=== PATIENT | female | born 1955 | race African-American/Black ===

== ENCOUNTER → 2017-10-09 | Outpatient (CLI) | payer BC | END | disposition home or self-care (01) | LOC: MAMMO 08:02 | DX: Z12.31 Encounter for screening mammogram for malignant neoplasm of breast (principal); R92.1 Mammographic calcification found on diagnostic imaging of breast | CPT/HCPCS: 77067 ==

== ENCOUNTER → 2018-12-12 | Outpatient (CLI) | payer BC ==
[2018-12-12 08:27] LABS: CHLORIDE 107 mEq/L (98-107)
[2018-12-12 08:36] LABS: LDL CHOLESTEROL 145 mg/dL (5-100)
[2018-12-12 08:37] LABS: HDL CHOLESTEROL 46 mg/dL (40-59); T4 FREE 0.93 ng/dL (0.76-1.46)
[2018-12-13 09:11] LABS: ESTRADIOL < 6.0 pg/mL (.); VITAMIN D 25-OH 44.6 ng/mL (30.0-100.0)
[2018-12-16 04:14] LABS: ESTROGENS TOTAL 89 pg/mL (.)
== END | disposition home or self-care (01) ==
LOC: MAMMO 07:48
DX: Z12.31 Encounter for screening mammogram for malignant neoplasm of breast (principal); E11.42 Type 2 diabetes mellitus with diabetic polyneuropathy; E11.43 Type 2 diabetes mellitus with diabetic autonomic (poly)neuropathy; E11.65 Type 2 diabetes mellitus with hyperglycemia; E11.69 Type 2 diabetes mellitus with other specified complication; E78.1 Pure hyperglyceridemia; M51.06 Intervertebral disc disorders with myelopathy, lumbar region
CPT/HCPCS: 36415; 77067; 80061; 82306; 82670; 82672; 83036; 84439; 84443; 84481

== ENCOUNTER → 2020-02-24 | Outpatient (CLI) | payer BC ==
[2020-02-24 08:26] LABS: BASOPHILS % 0.8 % (0.0-2.0); EOSINOPHILS % 3.3 % (0.0-5.0); HEMATOCRIT. 40.2 % (36.0-48.0); HEMOGLOBIN. 13.4 g/dL (12.0-16.0); LYMPHOCYTES % 28.9 % (20.0-50.0); MEAN CORPUSCULAR HEMOGLOBIN 28.5 pg (28.0-32.0); MEAN CORPUSCULAR VOLUME 85.5 fL (81.0-99.0); MEAN PLATELET VOLUME 8.8 fl (7.4-10.4); MONOCYTES % 5.6 % (2.0-8.0); NEUTROPHILS % 61.4 % (40.0-76.0); PLATELET 294 x1000/uL (130-400); RED CELL DISTRIBUTION WIDTH 14.5 % (11.6-14.6)
[2020-02-24 09:25] LABS: CHLORIDE 107 mEq/L (98-107)
[2020-02-24 09:33] LABS: LDL CHOLESTEROL 147 mg/dL (5-100)
[2020-02-24 09:35] LABS: HDL CHOLESTEROL 44 mg/dL (40-59)
== END | disposition home or self-care (01) ==
LOC: LAB 07:42
DX: E66.9 Obesity, unspecified (principal); E11.43 Type 2 diabetes mellitus with diabetic autonomic (poly)neuropathy; E11.69 Type 2 diabetes mellitus with other specified complication; E11.65 Type 2 diabetes mellitus with hyperglycemia; Z20.828 Contact with and (suspected) exposure to other viral communicable diseases
CPT/HCPCS: 36415; 80053; 80061; 82306; 84443; 85025; C9803; U0003

== ENCOUNTER → 2020-02-26 | Outpatient (CLI) | payer BC | END | disposition home or self-care (01) | LOC: MAMMO 07:48 | DX: Z12.31 Encounter for screening mammogram for malignant neoplasm of breast (principal) | CPT/HCPCS: 77067 ==

== ENCOUNTER → 2021-06-15 | Outpatient (CLI) | payer BC ==
[2021-06-15 10:02] LABS: CHLORIDE 106 mEq/L (98-107)
[2021-06-15 10:09] LABS: LDL CHOLESTEROL 122 mg/dL (5-100)
[2021-06-15 10:11] LABS: HDL CHOLESTEROL 40 mg/dL (40-59)
[2021-06-16 13:07] LABS: *CREATININE RANDOM URINE 218.5 mg/dL (Not Estab.); MICROALBUMIN RANDOM URINE 256.8 ug/mL (Not Estab.)
== END | disposition home or self-care (01) ==
LOC: LAB 09:06
DX: E11.65 Type 2 diabetes mellitus with hyperglycemia (principal); M75.51 Bursitis of right shoulder; R60.0 Localized edema
CPT/HCPCS: 36415; 80053; 80061; 82043; 82378; 82570; 83036; 86900

== ENCOUNTER → 2021-11-14 | Outpatient (CLI) | payer BC ==
[2021-11-14 09:07] LABS: BASOPHILS % 0.9 % (0.0-2.0); HEMATOCRIT. 40.1 % (36.0-48.0); HEMOGLOBIN. 13.3 g/dL (12.0-16.0); LYMPHOCYTES % 31.6 % (20.0-50.0); MEAN CORPUSCULAR HEMOGLOBIN 28.5 pg (28.0-32.0); MEAN CORPUSCULAR VOLUME 85.6 fL (81.0-99.0); MEAN PLATELET VOLUME 8.8 fl (7.4-10.4); MONOCYTES % 5.8 % (2.0-8.0); NEUTROPHILS % 56.7 % (40.0-76.0); PLATELET 288 x1000/uL (130-400); RED BLOOD CELL COUNT 4.68 mill/uL (4.2-5.4); RED CELL DISTRIBUTION WIDTH 14.7 % (11.6-14.6)
[2021-11-14 09:08] LABS: CHLORIDE 103 mEq/L (98-107)
[2021-11-14 09:23] LABS: HDL CHOLESTEROL 46 mg/dL (40-59); LDL CHOLESTEROL 150 mg/dL (5-100); T4 FREE 0.96 ng/dL (0.76-1.46)
== END | disposition home or self-care (01) ==
LOC: LAB 08:03
DX: R06.00 Dyspnea, unspecified (principal); R05.1 Acute cough; R07.0 Pain in throat; E11.65 Type 2 diabetes mellitus with hyperglycemia; M25.511 Pain in right shoulder; U09.9 Post COVID-19 condition, unspecified
CPT/HCPCS: 36415; 80053; 80061; 83036; 84439; 84443; 84481; 85025

== ENCOUNTER → 2022-05-23 | Outpatient (CLI) | payer BC | END | disposition home or self-care (01) | LOC: CARD 09:05 | PROVIDERS: ATTEND Specialist | DX: I08.3 Combined rheumatic disorders of mitral, aortic and tricuspid valves (principal); R01.1 Cardiac murmur, unspecified | CPT/HCPCS: 93306 ==

== ENCOUNTER → 2022-06-14 | Outpatient (CLI) | payer BC ==
[2022-06-14 10:22] LABS: BASOPHILS % 0.5 % (0.0-2.0); EOSINOPHILS % 1.2 % (0.0-5.0); HEMATOCRIT. 39.7 % (36.0-48.0); HEMOGLOBIN. 13.3 g/dL (12.0-16.0); LYMPHOCYTES % 24.2 % (20.0-50.0); MEAN CORPUSCULAR HEMOGLOBIN 28.7 pg (28.0-32.0); MEAN PLATELET VOLUME 8.3 fl (7.4-10.4); MONOCYTES % 4.1 % (2.0-8.0); PLATELET 368 x1000/uL (130-400); RED BLOOD CELL COUNT 4.61 mill/uL (4.2-5.4); RED CELL DISTRIBUTION WIDTH 14.1 % (11.6-14.6)
[2022-06-14 11:11] LABS: CHLORIDE 103 mEq/L (98-107)
[2022-06-14 11:26] LABS: HDL CHOLESTEROL 52 mg/dL (40-59); LDL CHOLESTEROL 172 mg/dL (5-100); T4 FREE 0.94 ng/dL (0.76-1.46)
[2022-06-15 14:09] LABS: *CREATININE RANDOM URINE 116.3 mg/dL (Not Estab.); MICROALBUMIN RANDOM URINE 59.7 ug/mL (Not Estab.)
== END | disposition home or self-care (01) ==
LOC: LAB 09:49
DX: E11.65 Type 2 diabetes mellitus with hyperglycemia (principal); E78.5 Hyperlipidemia, unspecified
CPT/HCPCS: 36415; 80053; 80061; 82043; 82570; 83036; 83880; 84439; 84443; 85025

== ENCOUNTER → 2022-07-27 | Outpatient (CLI) | payer BC | END | disposition home or self-care (01) | LOC: MAMMO 08:01 | DX: Z12.31 Encounter for screening mammogram for malignant neoplasm of breast (principal) | CPT/HCPCS: 77067 ==

== ENCOUNTER → 2023-07-23 | Outpatient (CLI) | payer BC ==
[2023-07-23 08:30] LABS: CARBON DIOXIDE 22 mEq/L (21-32); CHLORIDE 109 mEq/L (98-107); POTASSIUM 4.2 mEq/L (3.5-5.1); SODIUM 138 mEq/L (136-145)
[2023-07-23 08:31] LABS: CALCIUM 9.2 mg/dL (8.7-10.4)
[2023-07-23 08:35] LABS: CREATININE 0.7 mg/dL (0.6-1.0)
[2023-07-23 08:36] LABS: GLUCOSE 195 mg/dL (70-105); TRIGLYCERIDE 176 mg/dL (0-150); UREA NITROGEN BLOOD 9 mg/dL (9-23)
[2023-07-23 08:37] LABS: ALANINE AMINOTRANSFERASE 16 IU/L (10-49); LDL CHOLESTEROL 63 mg/dL (5-100)
[2023-07-23 08:38] LABS: ASPARTATE AMINOTRANSFERASE 14 IU/L (<34); BILIRUBIN TOTAL 0.4 mg/dL (0.1-1.0); CHOLESTEROL 129 mg/dL (<200); HDL CHOLESTEROL 43 mg/dL (>65); PROTEIN TOTAL 7.7 g/dL (6.0-8.3)
[2023-07-23 08:40] LABS: BASOPHILS % 0.4 % (0.0-2.0); EOSINOPHILS % 2.6 % (0.0-5.0); HEMATOCRIT. 38.5 % (36.0-48.0); HEMOGLOBIN. 12.8 g/dL (12.0-16.0); LYMPHOCYTES % 28.7 % (20.0-50.0); MEAN CORPUSCULAR HGB CONC 33.2 g/dL (31.0-37.0); MEAN CORPUSCULAR VOLUME 87.3 fL (81.0-99.0); MEAN PLATELET VOLUME 8.7 fl (7.4-10.4); MONOCYTES % 5.7 % (2.0-8.0); NEUTROPHILS % 62.6 % (40.0-76.0); PLATELET 304 x1000/uL (130-400); RED BLOOD CELL COUNT 4.41 mill/uL (4.2-5.4); RED CELL DISTRIBUTION WIDTH 14.8 % (11.6-14.6); WHITE BLOOD COUNT 8.5 x1000/uL (4.5-11.0)
[2023-07-23 08:42] LABS: T4 FREE 1.07 ng/dL (0.89-1.76)
== END | disposition home or self-care (01) ==
LOC: LAB 07:32
PROVIDERS: ATTEND Specialist
DX: I10 Essential (primary) hypertension (principal); E78.5 Hyperlipidemia, unspecified; E11.9 Type 2 diabetes mellitus without complications
CPT/HCPCS: 36415; 80053; 80061; 82306; 83036; 83735; 83880; 84439; 84443; 84480; 85025

== ENCOUNTER → 2023-10-29 | Outpatient (CLI) | payer BC ==
[2023-10-29 08:11] LABS: CHLORIDE 108 mEq/L (98-107); POTASSIUM 4.2 mEq/L (3.5-5.1); SODIUM 139 mEq/L (136-145)
[2023-10-29 08:12] LABS: CARBON DIOXIDE 24 mEq/L (21-32)
[2023-10-29 08:13] LABS: CALCIUM 9.6 mg/dL (8.7-10.4)
[2023-10-29 08:14] LABS: BASOPHILS % 0.4 % (0.0-2.0); EOSINOPHILS % 3.1 % (0.0-5.0); HEMATOCRIT. 38.8 % (36.0-48.0); HEMOGLOBIN. 12.8 g/dL (12.0-16.0); LYMPHOCYTES % 28.2 % (20.0-50.0); MEAN CORPUSCULAR HEMOGLOBIN 28.4 pg (28.0-32.0); MEAN CORPUSCULAR HGB CONC 32.9 g/dL (31.0-37.0); MEAN CORPUSCULAR VOLUME 86.3 fL (81.0-99.0); MEAN PLATELET VOLUME 8.5 fl (7.4-10.4); MONOCYTES % 5.9 % (2.0-8.0); NEUTROPHILS % 62.4 % (40.0-76.0); PLATELET 305 x1000/uL (130-400); RED BLOOD CELL COUNT 4.49 mill/uL (4.2-5.4); RED CELL DISTRIBUTION WIDTH 14.9 % (11.6-14.6); WHITE BLOOD COUNT 8.3 x1000/uL (4.5-11.0)
[2023-10-29 08:17] LABS: CREATININE 0.8 mg/dL (0.6-1.0); GLUCOSE 172 mg/dL (70-105)
[2023-10-29 08:18] LABS: UREA NITROGEN BLOOD 15 mg/dL (9-23)
[2023-10-29 08:22] LABS: THYROID STIMULATING HORMONE 1.16 uIU/mL (0.55-4.78)
== END | disposition home or self-care (01) ==
LOC: LAB 07:37
PROVIDERS: ATTEND Specialist
DX: I11.9 Hypertensive heart disease without heart failure (principal); E11.9 Type 2 diabetes mellitus without complications; E78.2 Mixed hyperlipidemia
CPT/HCPCS: 36415; 80048; 83036; 83735; 84439; 84443; 84481; 85025

== ENCOUNTER → 2024-01-31 | Outpatient (CLI) | payer BC | END | disposition home or self-care (01) | LOC: MAMMO 10:21 | DX: Z12.31 Encounter for screening mammogram for malignant neoplasm of breast (principal) | CPT/HCPCS: 77063; 77067 ==

== ENCOUNTER → 2024-02-26 | Outpatient (CLI) | payer BC ==
[2024-02-26 08:23] LABS: BASOPHILS % 0.3 % (0.0-2.0); EOSINOPHILS % 3.2 % (0.0-5.0); HEMATOCRIT. 41.4 % (36.0-48.0); HEMOGLOBIN. 13.6 g/dL (12.0-16.0); LYMPHOCYTES % 22.4 % (20.0-50.0); MEAN CORPUSCULAR HEMOGLOBIN 28.6 pg (28.0-32.0); MEAN CORPUSCULAR HGB CONC 32.9 g/dL (31.0-37.0); MEAN PLATELET VOLUME 8.6 fl (7.4-10.4); MONOCYTES % 5.8 % (2.0-8.0); NEUTROPHILS % 68.3 % (40.0-76.0); PLATELET 302 x1000/uL (130-400); RED BLOOD CELL COUNT 4.76 mill/uL (4.2-5.4); RED CELL DISTRIBUTION WIDTH 15.3 % (11.6-14.6); WHITE BLOOD COUNT 10.5 x1000/uL (4.5-11.0)
[2024-02-26 08:33] LABS: CHLORIDE 108 mEq/L (98-107); POTASSIUM 4.3 mEq/L (3.5-5.1); SODIUM 141 mEq/L (136-145)
[2024-02-26 08:34] LABS: CALCIUM 10.4 mg/dL (8.7-10.4); CARBON DIOXIDE 25 mEq/L (21-32)
[2024-02-26 08:39] LABS: CREATININE 0.8 mg/dL (0.6-1.0); GLUCOSE 163 mg/dL (70-105); TRIGLYCERIDE 120 mg/dL (0-150); UREA NITROGEN BLOOD 13 mg/dL (9-23)
[2024-02-26 08:40] LABS: LDL CHOLESTEROL 69 mg/dL (5-100)
[2024-02-26 08:41] LABS: ALANINE AMINOTRANSFERASE 17 IU/L (10-49); ASPARTATE AMINOTRANSFERASE 15 IU/L (<34); CHOLESTEROL 135 mg/dL (<200); HDL CHOLESTEROL 43 mg/dL (>65)
[2024-02-26 08:42] LABS: BILIRUBIN TOTAL 0.6 mg/dL (0.1-1.0); PROTEIN TOTAL 7.8 g/dL (6.0-8.3)
[2024-02-26 08:45] LABS: T4 FREE 1.35 ng/dL (0.89-1.76)
[2024-02-26 08:46] LABS: THYROID STIMULATING HORMONE 1.49 uIU/mL (0.55-4.78)
== END | disposition home or self-care (01) ==
LOC: LAB 07:47
PROVIDERS: ATTEND Specialist
DX: E11.9 Type 2 diabetes mellitus without complications (principal); E78.5 Hyperlipidemia, unspecified; R06.02 Shortness of breath; R79.89 Other specified abnormal findings of blood chemistry
CPT/HCPCS: 36415; 80053; 80061; 82306; 83036; 83735; 83880; 84439; 84443; 84481; 85025

== ENCOUNTER → 2024-07-28 | Outpatient (CLI) | payer BC ==
[2024-07-28 09:14] LABS: CLARITY URINE CLEAR (CLEAR); COLOR URINE YELLOW (YELLOW); GLUCOSE URINE 3+ (NEGATIVE); KETONES URINE NEGATIVE (NEGATIVE); LEUKOCYTE ESTERASE URINE TRACE (NEGATIVE); NITRITE URINE NEGATIVE (NEGATIVE); OCCULT BLOOD URINE NEGATIVE (NEGATIVE); PROTEIN URINE TRACE (NEGATIVE); SPECIFIC GRAVITY URINE 1.032 (1.005-1.030)
[2024-07-28 09:27] LABS: BACTERIA URINE 1+; RBC URINE 0-2 /hpf (0-2); SQUAMOUS EPITHELIAL CELL URINE 2+ /lpf (RARE/1+)
[2024-07-28 09:28] LABS: YEAST URINE RARE
[2024-07-29 13:09] LABS: *CREATININE RANDOM URINE 73.2 mg/dL (Not Estab.); MICROALBUMIN RANDOM URINE 110.5 ug/mL (Not Estab.)
== END | disposition home or self-care (01) ==
LOC: LAB 08:06
DX: E11.65 Type 2 diabetes mellitus with hyperglycemia (principal); E78.5 Hyperlipidemia, unspecified; Z00.8 Encounter for other general examination
CPT/HCPCS: 36415; 80061; 81001; 81003; 82043; 82570; 83036; 84681; 86301

== ENCOUNTER → 2024-07-28 | Outpatient (CLI) | payer BC ==
[2024-07-28 09:15] LABS: BASOPHILS % 0.9 % (0.0-2.0); HEMATOCRIT. 41.2 % (36.0-48.0); LYMPHOCYTES % 24.8 % (20.0-50.0); MEAN CORPUSCULAR HEMOGLOBIN 28.8 pg (28.0-32.0); MEAN CORPUSCULAR VOLUME 84.7 fL (81.0-99.0); MEAN PLATELET VOLUME 8.4 fl (7.4-10.4); NEUTROPHILS % 67.3 % (40.0-76.0); PLATELET 302 x1000/uL (130-400); RED BLOOD CELL COUNT 4.87 mill/uL (4.2-5.4); RED CELL DISTRIBUTION WIDTH 15.8 % (11.6-14.6); WHITE BLOOD COUNT 9.4 x1000/uL (4.5-11.0)
[2024-07-28 09:21] LABS: CHLORIDE 106 mEq/L (98-107); POTASSIUM 4.2 mEq/L (3.5-5.1); SODIUM 140 mEq/L (136-145)
[2024-07-28 09:22] LABS: CALCIUM 10.2 mg/dL (8.7-10.4); CARBON DIOXIDE 25 mEq/L (21-32)
[2024-07-28 09:27] LABS: CREATININE 0.8 mg/dL (0.6-1.0); GLUCOSE 170 mg/dL (70-105); UREA NITROGEN BLOOD 13 mg/dL (9-23)
[2024-07-28 09:29] LABS: ALANINE AMINOTRANSFERASE 13 IU/L (10-49); ALBUMIN 4.6 g/dL (3.2-4.8); ASPARTATE AMINOTRANSFERASE 12 IU/L (<34); BILIRUBIN TOTAL 0.5 mg/dL (0.1-1.0); PROTEIN TOTAL 7.6 g/dL (6.0-8.3)
[2024-07-28 09:31] LABS: T4 FREE 1.05 ng/dL (0.89-1.76)
[2024-07-28 09:32] LABS: THYROID STIMULATING HORMONE 1.77 uIU/mL (0.55-4.78)
== END | disposition home or self-care (01) ==
LOC: LAB 08:00
PROVIDERS: ATTEND Specialist
DX: I11.9 Hypertensive heart disease without heart failure (principal); E11.9 Type 2 diabetes mellitus without complications; E78.5 Hyperlipidemia, unspecified
CPT/HCPCS: 36415; 80053; 82306; 83735; 83880; 84439; 84443; 84481; 85025